=== PATIENT | male | born 1995 | race Caucasian/White ===

== ENCOUNTER 2017-02-03 06:22 | Emergency (ER) | payer BC ==
--- NOTE | ~2017-02-03 | US115 ---
[facility] A Service of [facility] & [facility] RADIOLOGY TEXT RESULTS PATIENT: MAYE CHUA LOCATION: [facility] : [birth year] UNIT #: [id number] AGE: [address]: Nikolay Carreon MD SEX: M ORDER DR: [id number] [facility] [address] [place], [place] [address] [id number] E MR#: [id number] Acc #: [id number] NAME: MAYE CHUA : 1995 SEX: M STUDY DATE/TIME: 02/03/2017 8:25 UNIT: [facility] ROOM: STUDY DESCRIPTION: US Scrotum and Contents Attending Physician: Nikolay Carreon M.D. Ordering Physician: Nikolay Carreon M.D. MEDICAL IMAGING REPORT This report is preliminary unless electronic signature is present EXAM Scrotal Doppler HISTORY Right testicular pain for 3 days. TECHNIQUE Rai-scale color Doppler spectral Doppler waveform analysis was performed through the scrotum. FINDINGS Both testicles are homogeneous in echotexture. Both demonstrate normal color-Doppler flow. Right and left epididymis are within normal limits. No solid or cystic masses are seen. No hydrocele or varicocele is identified. IMPRESSION Normal scrotal Doppler. Dictated by... Liset Hirsch M.D. THIS IS AN ELECTRONICALLY VERIFIED REPORT Liset Hirsch M.D. at 02/04/2017 10:50 AM AFF/ea TD: 02/03/2017 15:48 JOB #: [id number] MEDICAL IMAGING REPORT Page 1 of 1 COPY
[2017-02-03 07:49] LABS: URINE SOURCE CLEAN CATCH
[2017-02-03 07:55] LABS: BASOPHIL% 0.6 % (0-2.5); EOSINOPHIL# 0.3 X10e3 (0-0.7); EOSINOPHIL% 3.4 % (0.0-7.0); HEMATOCRIT 46.5 % (38.0-50.0); HEMOGLOBIN 15.1 gm/dL (13.0-16.0); LYMPHOCYTE# 1.5 X10e3 (1.0-3.5); LYMPHOCYTE% 20.7 % (17.0-45.0); MEAN CELL VOLUME 88.5 FL (83-96); MEAN CORPUSCULAR HEMOGLOBIN 28.7 PG (28-34); MEAN CORPUSCULAR HGB CONC 32.4 g/dL (30-36); MONOCYTE# 0.6 X10e3 (0-1.0); MONOCYTE% 8.8 % (3.0-12.0); NEUTROPHIL# 4.9 X10e3 (1.5-7.1); NEUTROPHIL% 66.5 % (40-75); PLATELET COUNT 191 X10e3 (140-420); RED BLOOD COUNT 5.25 X10e (3.90-5.60); RED CELL DISTRIBUTION WIDTH 13.3 % (11.0-15.5); WHITE BLOOD COUNT 7.4 X10e3 (4.0-10.5)
[2017-02-03 07:56] LABS: URINE APPEARANCE CLEAR; URINE BILIRUBIN NEG (NEG); URINE BLOOD NEG (NEG); URINE COLOR YELLOW; URINE GLUCOSE >1000 MG/DL (NEG); URINE KETONE NEG (NEG); URINE LEUKOCYTE ESTERASE NEG (NEG); URINE NITRATE NEG (NEG); URINE PH 6.5 (5-8); URINE PROTEIN NEG (NEG); URINE SPECIFIC GRAVITY 1.038 (1.003-1.035)
[2017-02-03 07:58] LABS: DIFF IND NO
[2017-02-03 08:03] LABS: CULTURE INDICATED? NO
[2017-02-06 17:04] LABS: CHLAMYDIA TRACH Not Detected (Not Detected); N GONOR Not Detected (Not Detected)
== END 2017-02-03 11:30 | disposition home or self-care (01) ==
LOC: CED 06:22
PROVIDERS: Emergency Medicine
DX: N45.1 Epididymitis (principal); N50.82 Scrotal pain; E11.9 Type 2 diabetes mellitus without complications
CPT/HCPCS: 36415; 76870; 81003; 85025; 87491; 87591; 96372; 96374; 99284; J0696; J1885